=== PATIENT | female | born 1980 | race Caucasian/White ===

== ENCOUNTER 2024-08-31 11:05 | Outpatient (AMB) | payer OTHER, SELFPAY ==
[2024-08-31 11:07] VITALS: BP 118/68; PULSE 72; RESP 18; TEMP 37.2; O2SAT 99; BMI 32.0
--- NOTE | 2024-08-31 11:07 | MHC.PC.OV ---
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 Transferring care from [facility] in [place], [place]. Medical records have not been requested and have not been received. Patient completed Authorization to Release Medical Information Form completed today. Proposal Consultant Required: No Accompanied by: Self / Same As Patient Allergies amoxicillin [From Augmentin] Allergy (Unknown, Verified 08/31/24 11:32) Hives clavulanic acid [From Augmentin] Allergy (Unknown, Verified 08/31/24 11:32) Hives Medication List - Last Reconciled 08/31/24 by ISABEL Iverson bupropion HCl XL (Wellbutrin XL) 300 mg PO QAM [id number] mg (Joint Support Complex) caps PO DAILY Tobacco use date assessed: 08/31/24 Dental Screening Dental Screen Date: 08/31/24 Did you have a dental visit in the last 12 months?: Yes Did you have a dental problem in the last 6 months where you did not have access to dental care?: No Was dental information given to patient?: Patient has dentist HPI 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 She is hoping to get in to [facility]-she is on a wating list Past medical history: Depression, no therapist, her Wellbutrin was started on hers antonio, and was transferred to her PCP at [facility] Medications: Wellbutrin 300 mg q.a.m. Family HX: Problem: The patient is a 44-year-old female presenting to establishing care with a new primary care provider due to insurance changes. She has successfully managed depression through Wellbutrin, reporting stabilized mood and avoiding the need for therapy. There is also a history of fluctuating blood pressure, which was addressed through DASH diet and lifestyle changes, leading to significant weight loss and normal blood pressure readings. Her past surgical history is notable for carpal tunnel surgeries on both hands and a section, with no current complications reported. Following a COVID-19 infection, she experienced atypical severe gastroesophageal reflux, which has resolved. 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 She continues to seek regular healthcare engagement to maintain her health. 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 pursue a rabies titer to make sure she is protected Her cholesterol was slightly elevated prior and she is hoping that this has improved with the new changes she made [facility] Medical History (Updated 08/31/24 @ 17:04 by ISABEL Iverson) Depression Surgical History (Updated 08/31/24 @ 11:18 by Blaire Liu CMA) Hx of section History of carpal tunnel release Family History (Updated 08/31/24 @ 11:21 by Blaire Liu CMA) Brother Melanoma Father Cancer of abdominal organ Other Family history of substance abuse Family hx of hypertension Family hx of lung cancer Social History (Updated 08/31/24 @ 11:23 by Blaire Liu CMA) Household Members: Family Household Members Other:: Daughter and Mother Housing: House Alcohol intake: current Alcohol intake frequency: holidays/special occasions only Patient Tobacco Use Status: Former Tobacco user Tobacco use type: Cigarette Years Smoked: 12 e-Cigarette/Vaping Use: Never Used Substance Use Type: Marijuana service: No Current occupational status: employed 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 1. Little interest or pleasure in doing things: not at all 2. Feeling down, depressed, or hopeless: not at all 3. Trouble falling or staying asleep, or sleeping too much: not at all 4. Feeling tired or having little energy: several days 5. Poor appetite or overeating: not at all 6. Feeling bad about yourself - or that you are a failure or have let yourself or your family down: not at all 7. Trouble concentrating on things, such as reading the newspaper or watching television: several days 8. Moving or speaking so slowly that other people could have noticed. Or the opposite - being so fidgety or restless that you have been moving around a lot more than usual: not at all 9. Thoughts that you would be better off or of hurting yourself in some way: not at all Total score: 2 Depression Screening Interpretation: Negative Depression Screening Done: Yes 49682 - PHQ-9 Billing: Yes Source: Developed by Drs. Brown Nayak, Mar Payne, Julio Coombs and colleagues, with an educational izzy from [employer]. Thrive Questionnaire Date Thrive assessed: 08/31/24 I am a: Patient What is your living situation today?: I have a steady place to live Within the past 12 months, did the food you bought not last and you didn't have the money to get more?: Never true Within the past 12 months, did you worry whether your food would run out before you got money to buy more?: Never true Do you have trouble paying for medicines?: No Do you have trouble getting transportation to medical appointments?: No Do you have trouble paying your heating and electricity bill?: Yes Do you have trouble taking care of your child, family member or friend?: No Do you have trouble with day-to-day activities such as bathing, preparing meals, shopping, managing finances, etc.?: No Are you currently unemployed and looking for a job?: No Are you interested in more education?: No Please select the resources that you would like help with: None Currently or been in a relationship where the following occur: Controlled Financially and Controlled Emotionally THRIVE Score: 3 AUDIT C Alcohol Use Questionnaire (AUDIT-C) 1. How often do you have a drink containing alcohol?: Monthly or less 2. How many drinks containing alcohol do you have on a typical day when you are drinking?: 1 or 2 3. How often do you have six or more drinks on one occasion?: Never Total Score: 1 Score Reviewed/Action Taken: No TAJ-7 AMB Questionnaire TAJ-7 Date TAJ - 7 assessed: 08/31/24 Feeling nervous, anxious, or on edge: 1 = Several days Not being able to stop or control worryin = Several days Worrying too much about different things: 1 = Several days Trouble relaxin = Several days Being so restless that it is hard to sit still: 0 = Not at all Becoming easily annoyed or irritable: 1 = Several days Feeling afraid as if something awful might happen: 1 = Several days Total TAJ-7 score (0-4 normal; 5-9 mild; 10-14 moderate; 15-21 severe): 6 Source: Developed by Drs. Brown Nayak, Mar Payne, Julio Coombs and colleagues, with an educational izzy from [employer]. TAJ-7 Assessment Billing TAJ-7 Assessment Tool: TAJ-7 Assessment 13920 Review of Systems Const Denies headache(s) Eyes Denies loss of vision ENT Denies vertigo, Denies dizziness, Denies headache(s) and Denies sore throat Card Denies chest pain, Denies leg edema and Denies lightheadedness Resp Denies cough, Denies hemoptysis and Denies wheezing GI Denies abdominal pain, Denies melena, Denies constipation, Denies heartburn (Reports severe heartburn have the COVID that resolved), Denies diarrhea and Denies vomiting Denies urinary frequency, Denies dysuria and Denies urinary urgency Musc Denies arthralgias, Denies joint swelling, Denies numbness and Denies tingling Neuro Denies Abnormal speech present, Denies behavioral changes, Denies vertigo, Denies dizziness, Denies headache(s), Denies loss of vision, Denies memory loss, Denies numbness and Denies tingling Psych Denies anxiety, Denies behavioral changes, Reports depression, Denies memory loss and Denies panic attacks Hira/Lymph Denies easy bleeding and Denies easy bruising Aller/Immun Denies wheezing Physical exam (Primary Care) Vital Signs: Last Vital Signs Temp 99.0 F 08/31/24 11:07 Pulse 72 08/31/24 11:07 Resp 18 08/31/24 11:07 BP 118/68 08/31/24 11:07 Pulse Ox 99 08/31/24 11:07 Oxygen Delivery Method Room Air 08/31/24 11:07 BMI result Body Mass Index 32.0 Tobacco/Smoking Status: Tobacco use Status Tobacco use date assessed 08/31/24 08/31/24 11:26 Patient Tobacco Use Status Former Tobacco user 08/31/24 11:26 Tobacco use type Cigarette 08/31/24 11:23 e-Cigarette/Vaping Use Never Used 08/31/24 11:26 PHQ-9: PHQ-9 Score PHQ-9: Total score 2 08/31/24 11:42 Depression Screening Interpretation: Negative Thrive Assessment: Date of Thrive Assessment Date Thrive assessed 08/31/24 08/31/24 11:26 Currently or been in a relationship where the following occur: Controlled Financially and Controlled Emotionally Const General: healthy appearing, no acute distress, alert and awake Nutritional Appearance: well nourished Orientation/consciousness: oriented to person, oriented to place and oriented to time HENMT Ears: TM's normal bilaterally and Abnormal EAC present excessive cerumen on the right General nose exam: Normal nasal mucous membranes and turbinates present Eyes Conjunctivae: conjunctivae normal Sclerae: sclerae normal Pupils: Equal, round and reactive pupils present Neck Neck: Yes no lymphadenopathy and Yes no JVD Thyroid: Thyroid normal Carotids: no bruits Resp Effort & Inspection: normal respiratory effort and not tachypneic Auscultation: no crackles, no rales, no rhonchi and no wheezes Cardio Rate: regular rate Rhythm: regular rhythm Heart sounds: no murmurs and normal S1 and S2 GI Palpation (GI): Soft to palpation, nontender, no hepatomegaly and no splenomegaly Auscultation: normal bowel sounds Skin General skin exam: no rashes or lesions noted and dry skin Neuro General: oriented to person, oriented to place and oriented to time Cranial nerves: Yes Equal, round and reactive pupils present Speech: No Abnormal speech present Gait exam (Neuro): Normal gait present Motor exam (neuro): no tremor noted Extrem Right upper extremity: full ROM Left upper extremity: full ROM Right lower extremity: full ROM; no edema Left lower extremity: full ROM; no edema Psych Mental Status: mental status grossly normal Speech and movement: Normal speech and movement present Affect: normal affect Attitude: cooperative Thought process: Normal thought process present Coding Level of Care Code New Pt Level 3 (17329) Diagnoses Depression, unspecified depression type F32.A Depression Type: unspecified Contact with and (suspected) exposure to rabies Z20.3 Elevated blood pressure reading without diagnosis of hypertension R03.0 Excessive cerumen in right ear canal H61.21 Additional Codes TAJ-7 Assessment Billing - TAJ-7 Assessment Tool: TAJ-7 Assessment 33694 ([id number]) PHQ-9 - 44929 - PHQ-9 Billing: Yes ([id number]) Time Spent (min) 33 Assessment & Plan Assessment & Plan (1) Depression: Code(s): F32.A - Depression, unspecified Category: Medical Qualifiers: Depression Type: unspecified Qualified Code(s): F32.A - Depression, unspecified Plan: Patient reports that she received Wellbutrin through the [facility], then the prescription was refilled by her previous PCP. Reports that she does not see a therapist but has been doing fine on her regimen. Denies SI/HI (2) Contact with and (suspected) exposure to rabies: Code(s): Z20.3 - Contact with and (suspected) exposure to rabies Category: Medical Plan: [facility]. She has oxygen for rabies titer to make sure that she is protected. The titer was ordered. (3) Elevated blood pressure reading without diagnosis of hypertension: Code(s): R03.0 - Elevated blood-pressure reading, without diagnosis of hypertension Category: Medical Plan: Patient reports a history of elevated blood pressure and that she was told to incorporate the dash diet. The patient blood pressure was within normal limits in office. Encouraged continuation of the dash diet. (4) Excessive cerumen in right ear canal: Code(s): H61.21 - Impacted cerumen, right ear Category: Medical Plan: Recommended Debrox ear drops Orders: Orders Complete Blood Count Auto Diff Today Z00.00 - Encounter for general adult medical examination without abnormal findings, Z20.3 - Contact with and (suspected) exposure to rabies Comprehensive [place]. Panel Fast Today Z00.00 - Encounter for general adult medical examination without abnormal findings, Z20.3 - Contact with and (suspected) exposure to rabies Vitamin D 25-OH Total Today Z00.00 - Encounter for general adult medical examination without abnormal findings, Z20.3 - Contact with and (suspected) exposure to rabies UA CC w/rflx Micro + Cult Today Z00.00 - Encounter for general adult medical examination without abnormal findings, Z20.3 - Contact with and (suspected) exposure to rabies TSH reflex Free T4 Today Z00.00 - Encounter for general adult medical examination without abnormal findings, Z20.3 - Contact with and (suspected) exposure to rabies Lipid Panel Today Z00.00 - Encounter for general adult medical examination without abnormal findings, Z20.3 - Contact with and (suspected) exposure to rabies Glucose Fasting Today Z00.00 - Encounter for general adult medical examination without abnormal findings, Z20.3 - Contact with and (suspected) exposure to rabies Rabies Neut. Ab Titration Today Z00.00 - Encounter for general adult medical examination without abnormal findings, Z20.3 - Contact with and (suspected) exposure to rabies
--- OUTSIDE RECORDS SUMMARY | 2024-08-31 12:33 | XMS_ITS ---
Author Organization [facility] Address [address] [address] Care Team Providers Care Lead Section Supervisor Name Role Phone Janine Storm Primary Care Provider SHANTI Brothers Unavailable [phone] REASON FOR VISIT Medical Records Encounters Encounter Location Date Provider Diagnosis [facility] [address] [address] 10/05/2023 SHANTI ARANDA Plan Of Treatment No Information Progress Notes * YOUSIF AdeolaDOB:1980 ([age] yo F)Acc No.[id number]:10/05/2023 Patient:?Adeola DODD :1980???Age:43 Y???Sex:Female Phone: Address:[address] [place] [address] * true * Date:? Generated for Elliei flakito/Thai/eTransmitting on:?08/31/2024 12:32 PM EDT
--- OUTSIDE RECORDS SUMMARY | 2024-08-31 12:33 | XMS_ITS ---
Author Organization [facility] Address [address] [address] Care Team Providers Care Office Agent Name Role Phone Janine Storm Primary Care Provider CHERIE Brothers Unavailable [phone] Allergies Allergen (clinical drug ingredient) Drug/Non Drug Allergy documented on EMR Reaction Allergy Type Onset Date Status amoxicillin / clavulanate Augmentin Unknown Drug Allergy Active REASON FOR VISIT 3wk Medications Medication SIG (Take, Route, Frequency, Duration) Notes Start Date End Date Status buPROPion HCl ER (XL) 300 MG 1 tablet in the morning Orally Once a day Active Ibuprofen 800 MG 1 tablet with food o r milk as needed Orally every 8 hrs Not-Taking Fish Oil 1000 MG 1 capsule Orally Thr ee times a day Not-Taking Multivitamin - 1 tablet Orally Once a day Not-Taking Mirena (52 MG) 20 MCG/DAY as directed Intrauterine Not -Taking Omeprazole 20 MG 1 capsule 30 minutes before morning meal Orally Once a day Not-Taking Meloxicam 15 MG 1 tablet with food Orally Once a day for 30 days 10/14/2023 Active tiZANidine HCl 2 MG 1 tablet at bedtime as needed Orally Once a day Not-Graham ing Glucosamine Active Vital Signs Temperature 97.4 degrees Fahrenheit 11/20/19 24 Heart Rate 86 /min 11/20/2023 Respiratory Rate 16 /min 11/20/2023 Height 5ft 3in in 11/20/2023 Weight 201.5 lbs 11/20/2023 BMI 35.69 kg/m2 11/20/2023 Encounters Encounter Location Date Provider Diagnosis [facility] [address] [address] 11/20/2023 CHERIE ARANDA Achilles tendinitis of left lower extremity M76.62 ; 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 and Gastrocnemius equinus of left lower extremity M62.462 Assessments Encounter Date Diagnosis (ICD Code) Assessment Notes Treatment Notes Treatment Clinical Notes Section Notes 11/20/2023 Achilles tendinitis of left lower extremity (ICD-10 - M76.62) Patient examined and evaluated today. Past medical history was reviewed. She has left insertional Achilles tendinopathy. She has had some improvements with NSAIDs, calf stretching and icing. She still has pain that is bothersome to the region. I discussed further options of treatment such as PT, shockwave therapy, and PRP injections. I provided her with education about the shockwave and PRP. She is interested in the PRP and would like to look into this more before scheduling. She will continue her current treatment for now and call us if she would like to try something different or has any questions. 11/20/2023 Achilles tendinosis of left lower extremity (ICD-10 - M67.88) 11/20/2023 Gastrocnemius equinus of left lower extremity (ICD-10 - M62.462) Plan Of Treatment Treatment Notes Assessment Notes Achilles tendinitis of left lower extremity Patient examined and evaluated today. Maxwell pedro medical history was reviewed. She has left insertional Achilles tendinopathy. She has had some improvements with NSAIDs, calf stretching and icing. She still has pain that is bothersome to the region. I discussed further options of treatment such as PT, shockwave therapy, and PRP injections. I provided her with education about the shockwave and PRP. She is interested in the PRP and would like to look into this more before scheduling. She will continue her current treatment for now and call us if she would like to try something different or has any questions. Progress Notes * Adeola DODDDOB:1980 ([age] yo F)Acc No.[id number]:11/20/2023 Progress Note Patient:?Adeola DODD Provider:Abelardo Shaw DPM :1980???Age:43 Y???Sex:Female D ate:11/20/2023 Phone: Address:[facility] [address], [place], [id number] Pcp:Janine Storm Subjective: * Chief Complaints: * ???3wk * HPI: ???Foot & Ankle:? Ms. Dodd is a pleasant 43 year old female who presents for a 3 week follow up of her left insertional Achilles tendonitis. She has been doing the calf stretching, icing and using the mobic daily. She states this has helped her. She does notice the pain returns when she does not take the mobic. She states her pain is about 30% improved. She still has days it bothers her. This depends on her activity. * ROS:?General/Constitutional:?Denies?Chills.?Denies?Fatigue.?Denies?Fever.?Denies?Headache.?Respiratory:?Denies?Cough.?Denies?Shortness of breath,?denies.?Denies?Wheezing.?Cardiovascular:?Denies?Chest pain.?Denies?Claudication.?Denies?Cyanosis.?Gastrointestinal:?Denies?Abdominal pain.?Denies?Constipation.?Denies?Diarrhea.?Musculoskeletal:?Patient complaining of?left heel pain.?Denies?Arthritis/Arthralgia.?Denies?Joint stiffness.?Denies?Leg cramps.?Skin:?Denies?Masses.?Denies?Nail changes.?Denies?Skin lesion(s).?Neurologic:?Denies?Paralysis.?Denies?Tingling/Numbness.?Denies?Tremor.? * Medical History:? * Surgical History:?carpal juno pankaj release 02/14/2014c-section 2004 * Hospitalization/Major Diagno stic Procedure:? (girl) 2004 * Family History:?Father: hype rtension, liver cancer.?Mother: herniated disc, hip replacement.?Maternal Grand Mother: brain tumor.?Maternal aunt: lung cancer.?Siblings: brother-melanoma.? 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 * Medications:?TakingbuPROPion HCl ER (XL) 300 MG Tablet Extended Release 24 Hour 1 tablet in the morning Orally Once a day Glucosamine Meloxicam 15 MG Tablet 1 tablet with food Orally Once a day Taking buPROPion HCl ER (XL) 300 MG Tablet Extended Release 24 Hour 1 tablet in the morning Orally Once a day Taking Glucosamine Taking Meloxicam 15 MG Tablet 1 tablet with food Orally Once a day Not-TakingtiZANidine HCl 2 MG Tablet 1 tablet at bedtime as needed Orally Once a day Omeprazole 20 MG Capsule Delayed Release 1 capsule 30 minutes before morning meal Orally Once a day Multivitamin - Tablet 1 tablet Orally Once a day Mirena (52 MG) 20 MCG/DAY Intrauterine Device as directed Intrauterine Ibuprofen 800 MG Tablet 1 tablet with food or milk as needed Orally every 8 hrs Fish Oil 1000 MG Capsule 1 capsule Orally Three times a day Medication List reviewed and reconciled with the patientNot- Taking tiZANidine HCl 2 MG Tablet 1 tablet at bedtime as needed Orally Once a day Not- Taking Omeprazole 20 MG Capsule Delayed Release 1 capsule 30 minutes before morning meal Orally Once a day Not-Taking Multivitamin - Tablet 1 tablet Orally Once a day Not-Taking Mirena (52 MG) 20 MCG/DAY Intrauterine Device as directed Intrauterine Not-Taking Ibuprofen 800 MG Tablet 1 tablet with food or milk as needed Orally every 8 hrs Not-Taking Fish Oil 1000 MG Capsule 1 capsule Orally Three times a day Medication List reviewed and reconciled with the patient * Allergies:?Augmentinno[Aller gies Verified] Objective: * Vitals:?Wt:201.5lbs, Ht: 5ft 3in, BMI:35.69Index, HR:86/min, Temp:97.4F, RR:16/min, Ht-cm: 160.02, Wt-k.4 kg. * Examination: ???General Examination: ???This is a middle aged female. Alert and oriented today and in no acute distress. Patient comes in ambulating in sneakers without using any assistive devices. Breathing is regular and unlabored while sitting. Affect is pleasant and cooperative. No unusual anxiety or depression noted. Hearing intact to spoken word. No evidence of visual impairment that would impact self care or ambulation. Patient has palpable dorsalis pedis and posterior tibial pulse bilaterally. No varicosities visualized. Capillary refill is less than 3 seconds to all digits bilaterally. Light touch sensation is symmetrical to all lower extremity dermatomes. Babinski is downgoing. Skin has normal turgor and texture. Numerous tattoos present to both lower extremities. There are no open wounds, rashes, or lesions noted. There is mild hypertrophy to the posterior left heel. No edema or erythema present. There is tenderness with pressure along the left Achilles insertion and into the retrocalcaneal region. There are no palpable nodules or fusiform thickening in the midsubstance of the left Achilles. No pain into the left calf region. No pain with medial and lateral compression of the left calcaneus. No pain at the plantar fascia insertion or around the peroneals on the left. There are bilateral hallux valgus deformities present. No pain or crepitus with 1st MTPJ range of motion. There is a bilateral gastrocnemius equinus present. Subtalar and ankle joint range of motion are unrestricted. 5/5 strength for anterior, posterior, and lateral lower extremity muscle groups on the left and right. No muscle atrophy noted. Assessment: * Assessment: 1.?Achilles tendinitis of le ft lower extremity - M76.62 (Primary)?2.?Achilles tendinosis of left lower extremity - M67.88?3.?Gastrocnemius equinus of left lower extremity - M62.462? Plan: * Treatment: * Procedure Codes:? * Billing Information: * Visit Code:? 85107 Office Visit, Est Pt., Level 3. * Procedure Codes:? * Sign off status: Completed true * Provider:?Cherie Shaw DPM Date:?11/19 Generated for Jazmyne fraga/Thai/Omiditting on:?08/31/2024 12:32 PM EDT History and Physical Notes * Examination Category Sub-Category Detail Notes Category Not es General Examination This is a middle aged female. Alert and oriented today and in no acute distress. Patient comes in ambulating in sneakers without using any assistive devices. Breathing is regular and unlabored while sitting. Affect is pleasant and cooperative. No unusual anxiety or depression noted. Hearing intact to spoken word. No evidence of visual impairment that would impact self care or ambulation. Patient has palpable dorsalis pedis and posterior tibial pulse bilaterally. No varicosities visualized. Capillary refill is less than 3 seconds to all digits bilaterally. Light touch sensation is symmetrical to all lower extremity dermatomes. Babinski is downgoing. Skin has normal turgor and texture. Numerous tattoos present to both lower extremities. There are no open wounds, rashes, or lesions noted. There is mild hypertrophy to the posterior left heel. No edema or erythema present. There is tenderness with pressure along the left Achilles insertion and into the retrocalcaneal region. There are no palpable nodules or fusiform thickening in the midsubstance of the left Achilles. No pain into the left calf region. No pain with medial and lateral compression of the left calcaneus. No pain at the plantar fascia insertion or around the peroneals on the left. There are bilateral hallux valgus deformities present. No pain or crepitus with 1st MTPJ range of motion. There is a bilateral gastrocnemius equinus present. Subtalar and ankle joint range of motion are unrestricted. 5/5 strength for anterior, posterior, and lateral lower extremity muscle groups on the left and right. No muscle atrophy noted.
--- OUTSIDE RECORDS SUMMARY | 2024-08-31 12:33 | XMS_ITS ---
Author Organization [facility] Address [address] [address] Care Team Providers Care Gas Collection System Operator Name Role Phone Janine Storm Primary Care Provider CHERIE Brothers Unavailable [phone] Allergies Allergen (clinical drug ingredient) Drug/Non Drug Allergy documented on EMR Reaction Allergy Type Onset Date Status amoxicillin / clavulanate Augmentin Unknown Drug Allergy Active REASON FOR VISIT Lt heel pain Medications Medication SIG (Take, Route, Frequency, Duration) Notes Start Date End Date Status Ibuprofen 800 MG 1 tablet with food o r milk as needed Orally every 8 hrs Not-Taking Mirena (52 MG) 20 MCG/DAY as directed Intrauterine Not -Taking Fish Oil 1000 MG 1 capsule Orally Thr ee times a day Not-Taking Glucosamine Active Meloxicam 15 MG 1 tablet with food Orally Once a day for 30 days 10/14/2023 Active Multivitamin - 1 tablet Orally Once a day Not-Taking Omeprazole 20 MG 1 capsule 30 minutes before morning meal Orally Once a day Not-Taking buPROPion HCl ER (XL) 300 MG 1 tablet in the morning Orally Once a day Active tiZANidine HCl 2 MG 1 tablet at bedtime as needed Orally Once a day Not-Graham ing Vital Signs Temperature 97.7 degrees Fahrenheit 10/14/19 24 Heart Rate 92 /min 10/14/2023 Respiratory Rate 16 /min 10/14/2023 Height 5ft 3in in 10/14/2023 Weight 200.5 lbs 10/14/2023 BMI 35.51 kg/m2 10/14/2023 Encounters Encounter Location Date Provider Diagnosis [facility] [address] [address] 10/14/2023 CHERIE ARANDA Achilles tendinitis of left lower extremity M76.62 ; 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 and Gastrocnemius equinus of left lower extremity M62.462 Assessments Encounter Date Diagnosis (ICD Code) Assessment Notes Treatment Notes Treatment Clinical Notes Section Notes 10/14/2023 Achilles tendinitis of left lower extremity (ICD-10 - M76.62) Patient examined and evaluated today. Past medical history was reviewed. Three weightbearing radiographs of the left foot were taken in the office and reviewed in the exam room with the patient with the help of a skeletal foot model. Patient was educated on the etiology of insertional Achilles tendonitis and tendinosis. Discussed conservative treatment options which included RICE therapy, oral anti-inflammatories , eccentric calf stretching, physical therapy, shoe modifications, heel lifts, bracing, ESWT, PRP, and immobilization in a tall CAM boot and/or cast for 6 weeks. I stressed the importance of adding RICE therapy with eccentric calf stretching twice daily. Patient was shown the proper way to stretch. I advised she stop the ibuprofen and start meloxicam 15mg daily with food for the next two weeks and then as needed. All Risks of taking NSAIDS were reviewed with the patient today. Risks included increase in blood pressure, heart attack, stroke, gastrointestinal irritation leading to ulceration and bleeding, renal injury, renal failure, and allergic reaction. I provided her with educational material on Achilles disorders and all the conservative treatments. I also provided her with all the stretching and printed copies of her radiographs. I will see her back in 3-4 weeks. I encouraged her to call if she has any questions or concerns in the meantime. 10/14/2023 Achilles tendinosis of left lower extremity (ICD-10 - M67.88) 10/14/2023 Gastrocnemius equinus of left lower extremity (ICD-10 - M62.462) Plan Of Treatment Medication Medication Name Sig Start Date Stop Date Notes Meloxicam 15 MG 1 tablet with food O rally Once a day for 30 days 10/14/2023 Treatment Notes Assessment Notes Achilles tendinitis of left lower extremity Patient examined and evaluated today. Maxwell pedro medical history was reviewed. Three weightbearing radiographs of the left foot were taken in the office and reviewed in the exam room with the patient with the help of a skeletal foot model. Patient was educated on the etiology of insertional Achilles tendonitis and tendinosis. Discussed conservative treatment options which included RICE therapy, oral anti-inflammatories, eccentric calf stretching, physical therapy, shoe modifications, heel lifts, bracing, ESWT, PRP, and immobilization in a tall CAM boot and/or cast for 6 weeks. I stressed the importance of adding RICE therapy with eccentric calf stretching twice daily. Patient was shown the proper way to stretch. I advised she stop the ibuprofen and start meloxicam 15mg daily with food for the next two weeks and then as needed. All Risks of taking NSAIDS were reviewed with the patient today. Risks included increase in blood pressure, heart attack, stroke, gastrointestinal irritation leading to ulceration and bleeding, renal injury, renal failure, and allergic reaction. I provided her with educational material on Achilles disorders and all the conservative treatments. I also provided her with all the stretching and printed copies of her radiographs. I will see her back in 3-4 weeks. I encouraged her to call if she has any questions or concerns in the meantime. Pending Test Test Name Order Date X ray : Foot, left 3v 10/14/2023 Next Appt Details Follow Up: 3 Weeks, Reason: Progress Notes * Adeola DODDDOB:1980 ([age] yo F)Acc No.[id number]:10/14/2023 Consult note Patient:?Adeola DODD Provider:?Cherie Shaw DPM :1980???Age:43 Y???Sex:Female D ate:10/14/2023 Phone: Address:[facility] [address], [place], [id number] Pcp:Janine Storm Subjective: * Chief Complaints: * ???Lt heel pain * HPI: ???Foot & Ankle:? Ms. Dodd is a pleasant 43 year old female who presents for a consultation. She has been having pain in the back of her left heel and Achilles region for the past 4 months. She states the pain has become more persistent over the past 3 weeks. She notices it when she is going down stairs or doing any prolonged ambulation. She also notices the pain with any direct pressure to the back of the heel. She describes the pain as burning at times without any radiating symptoms. She has noticed very mild localized swelling to the back of the heel, but no discoloration. She has been treating the pain with intermittent ibuprofen, icing, and shoe changes. This has been minimally helpful. She denies any preceeding injuries or changes in activity that started the pain. * ROS:?General/Constitutional:?Denies?Chills.?Denies?Fatigue.?Denies?Fever.?Denies?Headache.?Allergy/Immunology:?Denies?Hives.?Denies?Itching.?Denies?Rash.?Endocrine:?Denies?Excessive sweating.?Denies?Excessive thirst.?Denies?Frequent urination.?Respiratory:?Denies?Cough.?Denies?Shortness of breath,?denies.?Denies?Wheezing.?Cardiovascular:?Denies?Chest pain.?Denies?Claudication.?Denies?Cyanosis.?Gastrointestinal:?Denies?Abdominal pain.?Denies?Constipation.?Denies?Diarrhea.?Hematology:?Denies?Bleeding problems,?denies.?Denies?Easy bruising,?denies.?Denies?Swollen glands.?Musculoskeletal:?Patient complaining of?left heel pain.?Denies?Arthritis/Arthralgia.?Denies?Joint stiffness.?Denies?Leg cramps.?Peripheral Vascular:?Denies?Blanching of skin.?Blood clots in legs?Denies.?Denies?Cold extremities.?Skin:?Denies?Masses.?Denies?Nail changes.?Denies?Skin lesion(s).?Neurologic:?Denies?Paralysis.?Denies?Tingling/Numbness.?Denies?Tremor.?Psychiatric:?Denies?Auditory/visual hallucinations.?Denies?Delusions.?Denies?Suicidal thoughts.? * Medical History:? * Surgical History:?carpal juno pankaj release 02/14/2014c-section 2004 * Hospitalization/Major Diagno stic Procedure:? (girl) 2004 * Family History:?Father: hype rtension, liver cancer.?Mother: herniated disc, hip replacement.?Maternal Grand Mother: brain tumor.?Maternal aunt: lung cancer.?Siblings: brother-melanoma.? * Social History:?Tobacco: former smoker Alcohol: yes, 1-2 times per week [employer] at [employer]. * Medications:?TakingbuPROPion HCl ER (XL) 300 MG Tablet Extended Release 24 Hour 1 tablet in the morning Orally Once a day Glucosamine Taking buPROPion HCl ER (XL) 300 MG Tablet Extended Release 24 Hour 1 tablet in the morning Orally Once a day Taking Glucosamine Not-TakingtiZANidine HCl 2 MG Tablet 1 tablet [...] Medication List reviewed and reconciled with the patientNot-Taking tiZANidine HCl 2 MG Tablet 1 tablet at bedtime as needed Orally Once a day Not-Taking Omeprazole 20 MG Capsule Delayed Release 1 [...] patient * Allergies:?Augmentinno[Aller gies Verified] Objective: * Vitals:?Wt:200.5lbs, Ht: 5ft 3in, BMI:35.51Index, HR:92/min, Temp:97.7F, RR:16/min, Ht-cm: 160.02, Wt-k.95 kg. * Examination: ???General Examination: ???This is a middle aged female. Alert and oriented today and in no acute distress. Patient comes in ambulating in sandals without using any assistive devices. Breathing is [...] left and right. No muscle atrophy noted. Therapeutic Interventions: Assessment: * Assessment: 1.?Achilles tendinitis of le ft lower extremity - M76.62 (Primary)?2.?Achilles tendinosis of left lower extremity - M67.88?3.?Gastrocnemius equinus of left lower extremity - M62.462? Plan: * Treatment: 2.?Achilles tendinosis of le ft lower extremity?Imaging: X ray : Foot, left 3v 3.?Gastrocnemius equinus of left lower extremity?Imaging: X ray : Foot, left 3v * Procedures:?LEFT FOOT RADIOGRAPHS 10/14/2023 3 weight bearing views (AP, LAT, LO PROJECTION/MO VIEW) Taken in the office and read by the physician. Osseous mineralization is age appropriate. There are no acute fractures or dislocations. There is a hallux valgus deformity present. There is a cyst present at the medial 1st metatarsal head without any erosive changes. Mild sclerosis in the 1st MTPJ. There is a posterior calcaneal enthesophyte at the Achilles insertion region. No abnormal soft tissue calcifications noted or radio opaque foreign bodies. ? * Procedure Codes:?12397 X-RAY EXAM OF FOOT 3 Views, Modifiers: LT * Follow Up:?3 Weeks * Billing Information: * Visit Code:? 96161 Office Visit, New Pt., Level 3. * Procedure Codes:? 19287 X-RAY EXAM OF FOOT 3 Views. Modifiers: LT * Sign off status: Completed true * Provider:Abelardo Shaw DPM Date:?10/13 Generated for Jazmyne fraga/Thai/Omiditting on:?08/31/2024 12:33 PM EDT History and Physical Notes * Examination Category Sub-Category Detail Notes Category Not es General Examination This is a middle aged female. Alert and oriented today and in no acute distress. Patient comes in ambulating in sandals without using any assistive devices. Breathing is [...]
--- OUTSIDE RECORDS SUMMARY | 2024-08-31 12:33 | XMS_ITS | Patient Health Record ---
Author Organization [facility] Address [address] [address] Care Team Providers Care Probation Counselor Name Role Phone Janine Storm Primary Care Provider SHANTI Brothers Unavailable [phone] Allergies Allergen (clinical drug ingredient) Drug/Non Drug Allergy documented on EMR Reaction Allergy Type Onset Date Status amoxicillin / clavulanate Augmentin Unknown Drug Allergy Active Reason For Referral No Information Medications Medication SIG (Take, Route, Frequency, Duration) Notes Start Date End Date Status Omeprazole 20 MG 1 capsule 30 minutes before morning meal Orally Once a day Not-Taking Meloxicam 15 MG 1 tablet with food Orally Once a day for 30 days 10/14/2023 Active tiZANidine HCl 2 MG 1 tablet at bedtime as needed Orally Once a day Not-Graham ing buPROPion HCl ER (XL) 300 MG 1 tablet in the morning Orally Once a day Active Glucosamine Active Ibuprofen 800 MG 1 tablet with food o r milk as needed Orally every 8 hrs Not-Taking Fish Oil 1000 MG 1 capsule Orally Thr ee times a day Not-Taking Multivitamin - 1 tablet Orally Once a day Not-Taking Mirena (52 MG) 20 MCG/DAY as directed Intrauterine Not -Taking Vital Signs Heart Rate 86 /min 11/20/2023 Temperature 97.4 degrees Fahrenheit 11/20/2023 Respiratory Rate 16 /min 11/20/2023 Height 5ft 3in in 11/20/2023 Weight 201.5 lbs 11/20/2023 BMI 35.69 kg/m2 11/20/2023 Encounters Encounter Location Date Provider Diagnosis [facility] [address] [address] 10/14/2023 SHANTI ARANDA Achilles tendinitis of left lower extremity M76.62 ; 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 and Gastrocnemius equinus of left lower extremity M62.462 [facility] [address] 11/20/2023 SHANTI ARANDA Achilles tendinitis of left lower extremity M76.62 ; 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 11/20/2023 Achilles tendinosis of left lower extremity (ICD-10 - M67.88) 11/20/2023 Achilles tendinitis of left lower extremity [...] something different or has any questions. 11/20/2023 Gastrocnemius equinus of left lower extremity (ICD-10 - M62.462) 10/14/2023 Gastrocnemius equinus of left lower extremity (ICD-10 - M62.462) Plan Of Treatment Pending Test Test Name Order Date X ray : Foot, left 3v 10/14/2023 Insurance Providers Payer Name Payer Address Payer Phone Subscriber Number Group Number Insured Name Patient Relationship to Insured Coverage Start Date Coverage End Date [facility] [address] [address] [place] [address] [id number] [place] Self - patient is the insured Medical (General) History Medical History History ICD Code left lower quadrant pain food allergies + COVID 2022 and 2023 COVID vaccinated X 2 (Pfizer) Surgical History Surgery Date(Month/Year) carpal tunnel release 02/14/2014 2004 Hospitalization History Reason Date(Month/Year) (girl) 2004
== END 2024-08-31 11:56 | disposition home or self-care (01) ==
LOC: HO.HMCH 11:06
DX: F32.A Depression, unspecified (principal); Z20.3 Contact with and (suspected) exposure to rabies; R03.0 Elevated blood-pressure reading, without diagnosis of hypertension; H61.21 Impacted cerumen, right ear

== ENCOUNTER → 2024-08-31 11:05 | Outpatient (BNVA) | payer OTHER, SELFPAY | DX: F32.A Depression, unspecified (principal); R03.0 Elevated blood-pressure reading, without diagnosis of hypertension; H61.21 Impacted cerumen, right ear; Z20.3 Contact with and (suspected) exposure to rabies | CPT/HCPCS: 96127 ==

== ENCOUNTER 2024-10-01 10:02 | Outpatient (REF) | payer OTHER, SELFPAY ==
[2024-10-01 10:11] LABS: MANUAL DIFF FLAG NO
[2024-10-01 10:46] LABS: Basophils Absolute Auto 0.1 X10*3/uL (0.0-0.2); Basophils Percent Auto 0.7 % (0-2); Eosinophils Absolute Auto 0.2 X10*3/uL (0.0-0.4); Eosinophils Percent Auto 2.2 % (0-4); Hematocrit 40.4 % (37.0-47.0); Hemoglobin 13.8 g/dl (12.0-16.0); Imm Gran Abs Auto 0.02 X10*3/uL (0.00-0.03); Imm Gran Pct Auto 0.3 % (0.0-0.4); Lymphocytes Absolute Auto 2.1 X10*3/uL (1.2-4.9); Lymphocytes Percent Auto 30.6 % (20-40); Mean Corpuscular HGB Conc 34.2 g/dl (31.0-35.0); Mean Corpuscular Hemoglobin 33.2 pg (27.0-33.0); Mean Corpuscular Volume 97.1 fL (80.0-98.0); Mean Platelet Volume 9.5 fL (9.4-12.3); Monocytes Absolute Auto 0.5 X10*3/uL (0.1-1.2); Monocytes Percent Auto 7.7 % (2-11); Neutrophils Percent Auto 58.5 % (45-73); Platelet Count 281 X10*3/uL (160-400); Red Blood Count 4.16 X10*6/uL (4.20-5.50); Red Cell Distribution Width 11.8 % (11.0-16.0); White Blood Count 6.9 X10*3/uL (4.8-10.8)
[2024-10-01 11:07] LABS: Appearance Urine Clear; Color Urine Yellow; Glucose Urine UA Negative (Negative); Leukocyte Esterase Urine Negative (Negative); Nitrite Urine Negative (Negative); Urine Blood Negative (Negative); Urine Ketones Negative (Negative); Urine Protein Negative (Neg-Trace)
[2024-10-01 11:16] LABS: Alanine Aminotransferase 20 U/L (0-31); Albumin Level 4.5 g/dL (3.5-5.0); Alkaline Phosphatase 54 U/L (39-117); Anion Gap 11 (12-20); Aspartate Amino Transferase 16 U/L (5-31); Bilirubin Total 0.6 mg/dL (0.0-1.0); Blood Urea Nitrogen 13 mg/dL (9-16); Calcium 9.4 mg/dL (8.4-10.2); Carbon Dioxide 27 mmol/L (22-29); Chloride 106 mmol/L (96-108); Cholesterol 160 mg/dL (<200); Estimated Glomerular Filt Rate > 60; Glucose Fasting 74 mg/dL (60-99); HDL Cholesterol 50 mg/dL (>40); LDL Cholesterol Calculated 88 mg/dL (<100); Potassium 4.2 mmol/L (3.3-5.1); Sodium 140 mmol/L (135-145); Total Protein 7.3 g/dL (6.5-8.0); Triglycerides 111 mg/dL (<150)
[2024-10-01 11:31] LABS: TSH reflex Free T4 0.86 uIU/mL (0.32-4.0)
[2024-10-12 11:20] LABS: Rabies Neut. Ab Titration >/=15.0 IU/mL
== END 2024-10-01 10:03 | disposition home or self-care (01) ==
LOC: HO.LAB 10:02
DX: Z00.00 Encounter for general adult medical examination without abnormal findings (principal); Z20.3 Contact with and (suspected) exposure to rabies; Z13.6 Encounter for screening for cardiovascular disorders
CPT/HCPCS: 36415; 80053; 80061; 81003; 82306; 84443; 85025; 86382

== ENCOUNTER 2024-10-12 10:19 | Outpatient (AMB) | payer OTHER, SELFPAY ==
[2024-10-12 10:20] VITALS: BP 132/70; PULSE 68; RESP 16; TEMP 37.2; O2SAT 99; BMI 31.5
--- NOTE | 2024-10-12 10:20 | MHC.PC.OV ---
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 Required: No Accompanied by: Self / Same As Patient Allergies amoxicillin (From Augmentin) Allergy (Unknown, Verified 10/12/24 10:47) Hives clavulanic acid (From Augmentin) Allergy (Unknown, Verified 10/12/24 10:47) Hives Medication List - Last Reconciled 10/12/24 by ISABEL Iverson bupropion HCl XL (Wellbutrin XL) 300 mg PO QAM [id number] mg (Joint Support Complex) caps PO DAILY levonorgestrel (Mirena) intrauterine Tobacco use date assessed: 10/12/24 Dental Screening Dental Screen Date: 10/12/24 Did you have a dental visit in the last 12 months?: Yes Did you have a dental problem in the last 6 months where you did not have access to dental care?: No Was dental information given to patient?: Patient has dentist HPI pe HPI Details Dentist: up to date Eye: little over a year Snellen: Right: Left: Corrected vision: yes, glasses STI screening:n/a Colonoscopy:n/a Pap Smer: 01/2024 mammogram: 01/2024 PHQ-9: Flu:declines COVID: x2 Tdap: given in 2018 Diet:practice the DASH diet Exercise: doing metabolic weight training [facility] Medical History (Updated 08/31/24 @ 17:04 by ISABEL Iverson) Depression Surgical History Hx of section History of carpal tunnel release Family History Brother Melanoma Father Cancer of abdominal organ Other Family history of substance abuse Family hx of hypertension Family hx of lung cancer Social History Household Members: Family Household Members Other:: Daughter and Mother Housing: House Alcohol intake: current Alcohol intake frequency: holidays/special occasions only Patient Tobacco Use Status: Former Tobacco user Tobacco use type: Cigarette Years Smoked: 12 e-Cigarette/Vaping Use: Never Used Substance Use Type: Marijuana service: No Current occupational status: employed 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 1. Little interest or pleasure in doing things: not at all 2. Feeling down, depressed, or hopeless: several days 3. Trouble falling or staying asleep, or sleeping too much: not at all 4. Feeling tired or having little energy: nearly every day 5. Poor appetite or overeating: not at all 6. Feeling bad about yourself - or that you are a failure or have let yourself or your family down: several days 7. Trouble concentrating on things, such as reading the newspaper or watching television: several days 8. Moving or speaking so slowly that other people could have noticed. Or the opposite - being so fidgety or restless that you have been moving around a lot more than usual: not at all 9. Thoughts that you would be better off or of hurting yourself in some way: not at all Total score: 6 Depression Screening Interpretation: Positive Depression Screening Done: Yes Source: Developed by Drs. Brown Nayak, Mar Payne, Julio Coombs and colleagues, with an educational izzy from [employer]. Thrive Questionnaire Date Thrive assessed: 10/12/24 I am a: Patient What is your living situation today?: I have a steady place to live Within the past 12 months, did the food you bought not last and you didn't have the money to get more?: Never true Within the past 12 months, did you worry whether your food would run out before you got money to buy more?: Never true Do you have trouble paying for medicines?: No Do you have trouble getting transportation to medical appointments?: No Do you have trouble paying your heating and electricity bill?: Yes Do you have trouble taking care of your child, family member or friend?: No Do you have trouble with day-to-day activities such as bathing, preparing meals, shopping, managing finances, etc.?: No Are you currently unemployed and looking for a job?: No Are you interested in more education?: No Please select the resources that you would like help with: None THRIVE Score: 1 AUDIT C Alcohol Use Questionnaire (AUDIT-C) 1. How often do you have a drink containing alcohol?: Monthly or less 2. How many drinks containing alcohol do you have on a typical day when you are drinking?: 1 or 2 3. How often do you have six or more drinks on one occasion?: Never Total Score: 1 Score Reviewed/Action Taken: No TAJ-7 AMB Questionnaire TAJ-7 Date TAJ - 7 assessed: 10/12/24 Feeling nervous, anxious, or on edge: 1 = Several days Not being able to stop or control worryin = Not at all Worrying too much about different things: 0 = Not at all Trouble relaxin = Not at all Being so restless that it is hard to sit still: 0 = Not at all Becoming easily annoyed or irritable: 1 = Several days Feeling afraid as if something awful might happen: 0 = Not at all Total TAJ-7 score (0-4 normal; 5-9 mild; 10-14 moderate; 15-21 severe): 2 Source: Developed by Drs. Brown Nayak, Mar Payne, Julio Coombs and colleagues, with an educational izzy from [employer]. Review of Systems Const Denies headache(s) Eyes Denies loss of vision ENT Denies vertigo, Denies dizziness, Denies headache(s), Reports nasal congestion and Denies sore throat Card Denies chest pain, Denies leg edema and Denies lightheadedness Resp Denies cough, Denies hemoptysis and Denies wheezing GI Denies abdominal pain, Denies melena, Denies constipation, Denies diarrhea and Denies vomiting Denies urinary frequency, Denies dysuria and Denies urinary urgency Musc Denies arthralgias, Denies joint swelling, Denies numbness, Denies tingling and Reports other (tension tightness in the left shoulder, but no pain) Skin/Breast Denies new lesions and Denies rash Neuro Denies Abnormal speech present, Denies behavioral changes, Denies vertigo, Denies dizziness, Denies headache(s), Denies loss of vision, Denies memory loss, Denies numbness and Denies tingling Psych Reports anxiety, Denies behavioral changes, Reports depression, Denies memory loss and Denies panic attacks Hira/Lymph Denies easy bleeding and Denies easy bruising Aller/Immun Denies wheezing Physical exam (Primary Care) Vital Signs: Last Vital Signs Temp 99.0 F 10/12/24 10:20 Pulse 68 10/12/24 10:20 Resp 16 10/12/24 10:20 BP 132/70 10/12/24 10:20 Pulse Ox 99 10/12/24 10:20 Oxygen Delivery Method Room Air 10/12/24 10:20 BMI result Body Mass Index 31.5 Tobacco/Smoking Status: Tobacco use Status Tobacco use date assessed 10/12/24 10/12/24 10:33 Patient Tobacco Use Status Former Tobacco user 10/12/24 10:33 Tobacco use type Cigarette 10/12/24 10:33 e-Cigarette/Vaping Use Never Used 10/12/24 10:33 PHQ-9: PHQ-9 Score PHQ-9: Total score 6 10/12/24 11:00 Depression Screening Interpretation: Positive Thrive Assessment: Date of Thrive Assessment Date Thrive assessed 10/12/24 10/12/24 10:33 Const General: healthy appearing, no acute distress, alert and awake Nutritional Appearance: well nourished Orientation/consciousness: oriented to person, oriented to place and oriented to time HENMT Ears: TM's normal bilaterally General nose exam: Normal nasal mucous membranes and turbinates present Eyes Conjunctivae: conjunctivae normal Sclerae: sclerae normal Pupils: Equal, round and reactive pupils present Neck Neck: Yes no lymphadenopathy and Yes no JVD Thyroid: Thyroid normal Carotids: no bruits Resp Effort & Inspection: normal respiratory effort and not tachypneic Auscultation: no crackles, no rales, no rhonchi and no wheezes Cardio Rate: regular rate Rhythm: regular rhythm Heart sounds: no murmurs and normal S1 and S2 GI Palpation (GI): Soft to palpation, nontender, no hepatomegaly and no splenomegaly Auscultation: normal bowel sounds General: Yes no CVA tenderness OB/external & speculum: Deferred OB/external & speculum exam Back/Spine/Pelvis Back: no CVA tenderness Cervical Spine: No Cervical spine tenderness Thoracic/Lumbar Spine: No thoracic spinal tenderness and No lumbar spinal tenderness Skin General skin exam: no rashes or lesions noted and dry skin Neuro General: oriented to person, oriented to place and oriented to time Cranial nerves: Yes Equal, round and reactive pupils present Speech: No Abnormal speech present Gait exam (Neuro): Normal gait present Motor exam (neuro): no tremor noted Deep tendon reflexes (DTR's): Right triceps reflex intensity grade: 2+, Left triceps reflex intensity grade: 2+, Rt Biceps (C5, C6): 2+, Left biceps reflex intensity grade: 2+, Right brachioradialis reflex intensity grade: 2+, Left brachioradialis reflex intensity grade: 2+, Right patellar reflex intensity grade: 2+ and Left patellar reflex intensity grade: 2+ Extrem Right upper extremity: full ROM Left upper extremity: full ROM Right lower extremity: full ROM; no edema Left lower extremity: full ROM; no edema Psych Mental Status: mental status grossly normal Speech and movement: Normal speech and movement present Affect: normal affect Attitude: cooperative Thought process: Normal thought process present Results Reviewed Results Reviewed: Laboratory Tests 10/01/24 10/01/24 10:06 10:09 WBC 6.9 RBC 4.16 L Hgb 13.8 Hct 40.4 MCV 97.1 MCH 33.2 H MCHC 34.2 RDW 11.8 MPV 9.5 Immature Gran % (Auto) 0.3 Neut % (Auto) 58.5 Sodium 140 Potassium 4.2 Chloride 106 Carbon Dioxide 27 Anion Gap 11 L BUN 13 Creatinine 0.88 Estimated GFR > 60 Fasting Glucose 74 Calcium 9.4 Total Bilirubin 0.6 AST 16 ALT 20 Alkaline Phosphatase 54 Total Protein 7.3 Albumin 4.5 Triglycerides 111 Cholesterol 160 LDL Cholesterol, Calc 88 HDL Cholesterol 50 25-OH Vitamin D Total 56.0 TSH 0.86 Urine Color Yellow Urine Appearance Clear Urine pH 7.0 Ur Specific [place] 1.010 Urine Protein Negative Urine Glucose (UA) Negative Urine Ketones Negative Urine Blood Negative Urine Nitrite Negative Ur Leukocyte Esterase Negative Coding Level of Care Code Est Pt Prev Care 40-64y(76191) Diagnoses Annual physical exam Z00.00 Elevated blood pressure reading without diagnosis of hypertension R03.0 Depression, unspecified depression type F32.A Depression Type: unspecified Excessive cerumen in right ear canal H61.21 Time Spent (min) 39 Assessment & Plan Assessment & Plan (1) Annual physical exam: Code(s): Z00.00 - Encounter for general adult medical examination without abnormal findings Category: Medical Plan: Review preventative guidelines and recent labs the patient. Patient is in overall good health. Last mammogram and Pap smear was on 01/2024. She is on a waiting list for new obgyn practice/provider (2) Elevated blood pressure reading without diagnosis of hypertension: Code(s): R03.0 - Elevated blood-pressure reading, without diagnosis of hypertension Category: Medical Plan: The pressure within normal limits Reinforced dash diet (3) Depression: Code(s): F32.A - Depression, unspecified Category: Medical Qualifiers: Depression Type: unspecified Qualified Code(s): F32.A - Depression, unspecified Plan: Stable on current treatment Denies SI/HI (4) Excessive cerumen in right ear canal: Code(s): H61.21 - Impacted cerumen, right ear Category: Medical Plan: Cerumen manually removed with lighted curette Orders: Orders Complete Blood Count Auto Diff 1 Year Z00.00 - Encounter for general adult medical examination without abnormal findings Lipid Panel 1 Year Z00.00 - Encounter for general adult medical examination without abnormal findings TSH reflex Free T4 1 Year Z00.00 - Encounter for general adult medical examination without abnormal findings UA CC w/rflx Micro + Cult 1 Year Z00.00 - Encounter for general adult medical examination without abnormal findings Vitamin D 25-OH Total 1 Year Z00.00 - Encounter for general adult medical examination without abnormal findings Comprehensive [place]. Panel Fast 1 Year Z00.00 - Encounter for general adult medical examination without abnormal findings
--- OUTSIDE RECORDS SUMMARY | 2024-10-12 11:41 | XMS_ITS | Patient Health Record ---
Author Organization [facility] Address [address] [place] [address] Care Team Providers Care Oil And Gas Principal Name Role Phone Herminio HYATT, Melissa Primary Care Provider Unava Olu Yanez Unavailable [phone] Allergies Allergen (clinical drug ingredient) Drug/Non Drug Allergy documented on EMR Reaction Allergy Type Onset Date Status cranberries (uncoded) Unknown Allergy Active amoxicillin / clavulanate Augmentin hives Drug Allergy Active Reason For Referral No Information Medications Medication SIG (Take, Route, Fr equency, Duration) Notes Start Date End Date Status Feldene 20 MG 1 capsule with food Orally Once a day for 30 day(s) 09/27/2014 Active [place] 3 1000 MG 1 capsule Orally Once a day Active Womens Multi Orally Active Problems Problem Type SNOMED Code ICD Code Onset Dates Problem Status W/U Status Risk Notes Problem Hallux valgus (495283773) Hallux Valgus (735.0) Active confirmed Problem 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) (109019673) Hallux Limitus (735.8) Active confirmed Problem Congenital pes planus (41355729) Flat Foot, Congenital (754.61) Active confirmed Problem Pain in limb (51022558) Pain in Limb (729.5) Active confirmed Plan Of Treatment Pending Test Test Name Order Date X ray : Foot, left 2V 09/27/2014 X ray : Foot, right 2V 09/27/2014 Insurance Providers Payer Name Payer Address Payer Phone Subscriber Number Group Number Insured Name Patient Relationship to Insured Coverage Start Date Coverage End Date [employer] [address] [place] [address] [id number] Adeola [place] Self - patient is the insured Medical (General) History Medical History History ICD Code Headaches High blood pressure Transfusions Surgical History Surgery Date(Month/Year) section 07/15/2004 carpal tunnel surgery Right & left 10/08
== END 2024-10-12 11:14 | disposition home or self-care (01) ==
LOC: HO.HMCH 10:19
DX: Z00.00 Encounter for general adult medical examination without abnormal findings (principal); R03.0 Elevated blood-pressure reading, without diagnosis of hypertension; F32.A Depression, unspecified; H61.21 Impacted cerumen, right ear

== ENCOUNTER 2025-03-03 13:48 | Outpatient (AMB) | payer OTHER, SELFPAY ==
--- NOTE | 2025-03-03 13:50 | A.OFFVIS_ITS ---
Intake Visit Reasons: Encounter for gynecological examination (general) Primary Special Educator: Primary Special Educator Present (Agustina) Accompanied by: Self / Same As Patient Allergies amoxicillin (From Augmentin) Allergy (Unknown, Verified 03/03/25 14:01) Hives clavulanic acid (From Augmentin) Allergy (Unknown, Verified 03/03/25 14:01) Hives Medication List - Last Reconciled 03/03/25 by Tiki Evans CNM bupropion HCl XL (Wellbutrin XL) 300 mg PO QAM [id number] mg (Joint Support Complex) caps PO DAILY levonorgestrel (Liletta) intrauterine Is last menstrual period known: Yes Last menstrual period: 01/31/25 Post menopausal: No Patient : No HPI HPI Encounter for gynecological examination (general): Details: 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 She came here about 20 years ago she did have an emergency 21 years ago, 7 weeks early for severe preeclampsia with a placental abruption per Dr. Zeng she was on Mag for 24 hours after and she received several transfusions her baby was transferred to [facility]. She has been going to care in [place] but her insurance has changed so she is changing she is up-to-date on Pap smears she has a Liletta IUD it is her 4th and she is very happy with the method she does not get periods but she is kind of aware of her cyclic changes a little bit more She also has a challenge with a rectal fistula that she is going to be seeing her primary about getting referred to see someone else she needs a mammogram. [facility] Medical History Depression Surgical History Hx of section History of carpal tunnel release Family History Brother Melanoma Father Cancer of abdominal organ Other Family history of substance abuse Family hx of hypertension Family hx of lung cancer Social History Household Members: Family Household Members Other:: Daughter and Mother Housing: House Alcohol intake: current Alcohol intake frequency: holidays/special occasions only Patient Tobacco Use Status: Former Tobacco user Tobacco use type: Cigarette Years Smoked: 12 e-Cigarette/Vaping Use: Never Used Substance Use Type: Marijuana service: No Current occupational status: employed 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- [employer] Cognitive needs: No Hearing needs: No Vision needs: Yes (Glasses) Female Reproductive History Menstrual Age of Menarche: 14 Date of last menstrual period: 01/31/25 control method: progestin IUCD (Liletta) Total pregnancies: 1 Premature: 1 Date of last pap smear: 02/25/24 (negative pap smear, negative hpv ) Date of Mammogram: 02/25/24 Physical Exam Const General: healthy appearing, comfortable, no acute distress, well developed and alert Nutritional Appearance: average body habitus Orientation/consciousness: patient oriented x3 Limitations: no limitations HEENT Head: Yes normocephalic Neck Neck: Yes normal visual inspection Chest Chest palpation & inspection: normal inspection of the chest Breast/axilla inspection: normal inspection of the breasts and normal inspection of the axillae Breast/axilla palpation: normal palpation of the breasts and normal palpation of the axillae Resp Effort & Inspection: normal respiratory effort GI Inspection: Yes normal to inspection, No Abdominal wall edema and No distended Palpation (GI): Soft to palpation and nontender Other: External exam within normal limits. Vagina pink and moist cervix nulliparous pink smooth healthy appearing with normal yellow and white discharge and clear discharge Liletta string visible about 3 cm in length cervix is long close thick mobile nontender uterus midposition mobile nontender adnexa nontender. Very good tone with Kegel. Patient believes she has a anal fistula that is currently asymptomatic however has been abscessed in the past and she has been caring forward for herself. She is going to be seeing her primary care provider seeking care for this.. General: Yes bladder normal to palpation External Female Exam: normal external appearance and normal appearance of the urethra Speculum Exam - Vagina: normal appearance of the vagina, normal palpation and normal vaginal discharge Speculum Exam - Cervix: normal appearance of the cervix, normal palpation and nontender Bimanual exam- vagina & uterus: normal bimanual exam, normal palpation, uterine size normal, bladder normal to palpation, consistency normal, normal palpation, uterine mobility normal, uterine shape normal, No Cervical tenderness present, non-tender and no cervical motion tenderness Bimanual Exam- Adnexa, other: normal adnexae, no masses, normal and No adnexal tenderness Neuro General: patient oriented x3 Assessment & Plan Assessment & Plan (1) Encounter for routine gynecological examination: Code(s): Z01.419 - Encounter for gynecological examination (general) (routine) without abnormal findings Category: Medical (2) Cervical cancer screening: Comment: Pap smear negative with negative HPV through [facility] system 02/25/2024 Code(s): Z12.4 - Encounter for screening for malignant neoplasm of cervix Category: Medical (3) Presence of 52 mg levonorgestrel-releasing intrauterine device (IUD): Comment: Has Rajeev IUD probably her 4th, this 1 inserted 2020 Code(s): Z97.5 - Presence of (intrauterine) contraceptive device Category: Social Hx (4) Breast cancer screening: Code(s): Z12.39 - Encounter for other screening for malignant neoplasm of breast Category: Medical Plan -----Discussed in this visit the following: healthy balanced diet, regular and consistent exercise, getting recommended health screens, doing the best she can for her particular health concerns, kegel exercises, pap smear screening and followup recommendations, mammography screening and SBE, normal changes in cycles in her life stage--- . I am ordering a mammogram for her. Discussed her OB history in detail her history with the Liletta as her happiness with them discussed how long they can be used and she was told by her last provider that it had now been approved for 8 years and she did find insertion and removal painful so the less often it has to be done the better discussed use of misoprostol before removal and insertion l discussed that if she has a return to menses before 8 years along with other signs and symptoms of retu to fertility that she may want to not depend on it for rn This note is constructed using voice recognition software. While every effort has been made to ensure accuracy, dragline operator errors may have been included. Note there are dictation glitchis occurring , many efforts are being made to correct them. She is going to be seeing her primary care provider and anticipates a referral to someone to assess what she believes is a anal fistula. She was not due for Pap smear and she declined cultures as she had had them done since her most recent sexual encounter. Orders: Orders MM tomosynthesis screening BI Today Z01.419 - Encounter for gynecological examination (general) (routine) without abnormal findings, Z12.31 - Encounter for screening mammogram for malignant neoplasm of breast, Z12.4 - Encounter for screening for malignant neoplasm of cervix, Z97.5 - Presence of (intrauterine) contraceptive device Coding Level of Care Code New Pt Prev Care 40-64y([id number]) Diagnoses Encounter for routine gynecological examination Z01.419 Cervical cancer screening Z12.4 Presence of 52 mg levonorgestrel-releasing intrauterine device (IUD) Z97.5 Breast cancer screening Z12.39
== END 2025-03-03 15:02 | disposition home or self-care (01) ==
LOC: HO.HWS 13:49
PROVIDERS: Visit Provider Advanced Practice Midwife
DX: Z01.419 Encounter for gynecological examination (general) (routine) without abnormal findings (principal); Z12.4 Encounter for screening for malignant neoplasm of cervix; Z97.5 Presence of (intrauterine) contraceptive device; Z12.39 Encounter for other screening for malignant neoplasm of breast
CPT/HCPCS: 99386; 99459

== ENCOUNTER 2025-03-22 11:36 | Outpatient (AMB) | payer OTHER, SELFPAY ==
[2025-03-22 11:41] VITALS: BP 112/72; PULSE 76; RESP 18; O2SAT 99; BMI 32.1
--- NOTE | 2025-03-22 11:41 | MHC.PC.OV ---
Vital Signs 03/22/25 11:41 Height 5 ft 3 in Weight 181 lb 4 oz BMI 32.1 BP 112/72 Blood Pressure Location Lt brachial Position Sitting Respiration 18 Pulse 76 Pulse Source Pulse Oximeter Temp Source Temporal Artery Scan Pulse Oximetry (%) 99 Oxygen Delivery Method Room Air Intake Visit Reasons: Possible perianal fistula Dining Room Hostess Required: No Accompanied by: Self / Same As Patient Allergies amoxicillin (From Augmentin) Allergy (Unknown, Verified 03/22/25 11:54) Hives clavulanic acid (From Augmentin) Allergy (Unknown, Verified 03/22/25 11:54) Hives Medication List - Last Reconciled 03/22/25 by ISABEL Iverson bupropion HCl XL (Wellbutrin XL) 300 mg PO QAM [id number] mg (Joint Support Complex) caps PO DAILY levonorgestrel (Liletta) intrauterine Tobacco use date assessed: 03/22/25 Dental Screening Dental Screen Date: 03/22/25 Did you have a dental visit in the last 12 months?: Yes Did you have a dental problem in the last 6 months where you did not have access to dental care?: No Was dental information given to patient?: Patient has dentist HPI Possible perianal fistula HPI Details Patient is a 45-year-old female presenting for perianal fistula evaluation Patient reports that this has been going on for about 4 months She reports seeing blood on toilet paper upon wiping intermittently Has been self-treating this with antibiotic ointment and sitz bath without any resolution States that this could be uncomfortable, but she tried to deal with this on her own due to the sensative nature of the area [facility] Medical History Depression Surgical History Hx of section History of carpal tunnel release Family History Brother Melanoma Father Cancer of abdominal organ Other Family history of substance abuse Family hx of hypertension Family hx of lung cancer Social History Household Members: Family Household Members Other:: Daughter and Mother Housing: House Alcohol intake: current Alcohol intake frequency: holidays/special occasions only Patient Tobacco Use Status: Former Tobacco user Tobacco use type: Cigarette Years Smoked: 12 e-Cigarette/Vaping Use: Never Used Substance Use Type: Marijuana service: No Current occupational status: employed 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- [employer] Cognitive needs: No Hearing needs: No Vision needs: Yes (Glasses) Female Reproductive History Menstrual Age of Menarche: 14 Questionnaire Thrive Questionnaire Date Thrive assessed: 08/31/24 I am a: Patient What is your living situation today?: I have a steady place to live Within the past 12 months, did the food you bought not last and you didn't have the money to get more?: Never true Within the past 12 months, did you worry whether your food would run out before you got money to buy more?: Never true Do you have trouble paying for medicines?: No Do you have trouble getting transportation to medical appointments?: No Do you have trouble paying your heating and electricity bill?: Yes Do you have trouble taking care of your child, family member or friend?: No Do you have trouble with day-to-day activities such as bathing, preparing meals, shopping, managing finances, etc.?: No Are you currently unemployed and looking for a job?: No Are you interested in more education?: No Please select the resources that you would like help with: None THRIVE Score: 1 TAJ-7 AMB Questionnaire TAJ-7 Date TAJ - 7 assessed: 10/12/24 Source: Developed by Drs. Brown Nayak, Mar Payne, Julio Coombs and colleagues, with an educational izzy from [employer]. Review of Systems Const Denies body aches, Denies chills, Denies fever(s), Denies headache(s) and Denies poor appetite Eyes Reports no additional complaints ENT Denies dysphagia, Denies dizziness, Denies headache(s) and Denies odynophagia Card Denies chest pain, Denies syncope, Denies edema, Denies irregular heart rhythm, Denies lightheadedness and Denies dyspnea Resp Denies cough and Denies dyspnea GI Denies abdominal pain, Reports hematochezia (upon wiping intermittently), Denies constipation, Denies dysphagia, Denies diarrhea, Denies nausea, Denies odynophagia and Denies vomiting Reports no additional complaints Musc Reports no additional complaints and Denies abnormal gait Skin/Breast Reports system reviewed and no additional complaints, except as documented Neuro Denies abnormal gait, Denies dizziness, Denies syncope and Denies headache(s) Psych Reports no additional complaints Physical exam (Primary Care) Vital Signs: Last Vital Signs Pulse 76 03/22/25 11:41 Resp 18 03/22/25 11:41 BP 112/72 03/22/25 11:41 Pulse Ox 99 03/22/25 11:41 Oxygen Delivery Method Room Air 03/22/25 11:41 BMI result Body Mass Index 32.1 Tobacco/Smoking Status: Tobacco use Status Tobacco use date assessed 03/22/25 03/22/25 11:47 Patient Tobacco Use Status Former Tobacco user 03/22/25 11:47 Tobacco use type Cigarette 03/22/25 11:47 e-Cigarette/Vaping Use Never Used 03/22/25 11:47 Thrive Assessment: Date of Thrive Assessment Date Thrive assessed 08/31/24 03/22/25 11:47 Const General: cooperative, healthy appearing, comfortable and no acute distress Orientation/consciousness: patient oriented x3 HENMT Head: Yes normocephalic Ears: hearing grossly normal bilaterally General nose exam: Normal external nose present Eyes General: appearance normal, both eyes and all related structures Conjunctivae: conjunctivae normal Neck Neck: Yes full ROM and Yes no lymphadenopathy Resp Effort & Inspection: normal respiratory effort Auscultation: clear to auscultation bilaterally, no crackles, no rales, no rhonchi and no wheezes Cardio Rate: regular rate Rhythm: regular rhythm Heart sounds: S1 normal heart sound present and S2 normal heart sound present GI Palpation (GI): Soft to palpation and nontender Rectal Exam - Female: Anal fissure(s) present Skin General skin exam: no rashes or lesions noted Neuro General: patient oriented x3 Gait exam (Neuro): Normal gait present Extrem General: Yes normal to inspection, Yes full ROM and No edema Psych Affect: normal affect Attitude: cooperative Insight: Good insight present (Psych) Judgement: Good judgement present (Psych) Coding Level of Care Code Est Pt Level 3 (14326) Diagnoses Anal fissure K60.2 Time Spent (min) 28 Assessment & Plan Assessment & Plan (1) Anal fissure: Code(s): K60.2 - Anal fissure, unspecified Category: Medical Plan: Encouraged methods to decrease constipation, like a high fiber diet, adequate fluid hydration, along with sitz bath. Nitroglycerin 0.4% 1 inch MN BID to 6 weeks. Encouraged the patient to contact the office if she is not seeing any improvement in 3 weeks for a reevaluation. Medications: New nitroglycerin 0.4%(w/w) 1 inch MN BID 30 grams 0RF 6 weeks
== END 2025-03-22 12:19 | disposition home or self-care (01) ==
LOC: HO.HMCH 11:37
DX: K60.2 Anal fissure, unspecified (principal)